=== PATIENT | female | born 1980 | race Caucasian/White ===

== ENCOUNTER → 2017-11-22 | Outpatient (CLI) | payer OTHER | END | disposition home or self-care (01) | LOC: C.PATHSPEC 17:48 | PROVIDERS: ATTEND Obstetrics & Gynecology | DX: O09.511 Supervision of elderly primigravida, first trimester (principal); Z3A.00 Weeks of gestation of pregnancy not specified ==

== ENCOUNTER 2018-06-13 00:17 | Inpatient (IN) ==
[2018-06-13] MEDS ORDERED: LACTATED RINGER'S 1,000 ML IV PRN ×3 (01:32→17:01)
[2018-06-13] MEDS ORDERED: OXYTOCIN 30 UNITS/500 ML BAG IV PRN ×2 (01:32→12:39)
--- NOTE | 2018-06-13 01:39 | History & Physical Report ---
Date of Service June 13, 2018 Assessment & Plan (1) PROM (premature rupture of membranes): Admit will initiate antibiotics is strep status is unknown group B strep swab is performed hopefully results will help care of the after delivery expectant management at this stage as patient is starting to contract discussed the role of Pitocin if contractions do not increase further History of Present Illness Primary Care Provider: NO PCP 38-year-old G1 presents with gross rupture of membranes patient is nahomy although minimally she has no group B strep status as her appointment was actually scheduled for today where this was going to be done. was complicated with a Zika exposure however ultrasounds were normal. She did have a maternal medicine consult findings were normal ultrasounds have been normal with us as well her actual PCR was negative but her exposure was positive otherwise uncomplicated Patient History Social History Preferred Language: Bol[place]ian marital status: Feels Safe at Home: Yes Safety Concerns: Feels Safe At This Time Smoking Status: Never smoker Hx Alcohol Use: No Hx Substance Use: No Physical Exam Vital Signs (Past 24 Hours): Last Vital Signs Temp 36.7 C 06/13/18 00:44 Pulse 82 06/13/18 00:44 Resp 18 06/13/18 00:44 BP 121/86 06/13/18 00:44 Physical Exam: Vital signs stable afebrile abdomen gravid heart rate reactive patient is grossly ruptured cervix is closed 50% and firm vertex position -1 station estimated weight 7 pounds
[2018-06-13] MEDS ORDERED: PENICILLIN G POTASSIUM 6 MU in DEXTROSE 5% 250 ML IV ONE (01:45)
[2018-06-13 02:04] LABS: Hematocrit (blood only) 35.1 % (37-47); Hemoglobin 11.7 g/dL (12.0-16.0); Mean Corpuscular Volume 80.5 fL (80-100); Mean Platelet Volume 11.1 fL (7.4-10.4); Platelet Count 292 K/uL (130-400); RDW Coefficient of Variation 15.2 % (11.5-14.5); RDW Standard Deviation 43.9 fL (36.4-46.3); Red Blood Count 4.36 M/uL (4.2-5.4); White Blood Count 5.92 K/uL (4.8-10.8)
[2018-06-13 02:06] LABS: Mean Corpuscular Hgb Conc 33.3 g/dL (32-36)
[2018-06-13] MEDS: LACTATED RINGER'S 1,000 ML IV SCH ×2 (02:22→16:25)
[2018-06-13] MEDS: PENICILLIN G POTASSIUM 3 MU in DEXTROSE 5% 100 ML IV PRN ×4 (06:22→18:44)
--- NOTE | 2018-06-13 08:04 | Obstetrical Progress Note ---
Date of Service June 13, 2018 6+ hours PROM and contractions are increasing, but not adequate yet. I have recommended Pitocin, she wishes to wait for now. Disc risks of infection Physical Exam Vital Signs (Past 24 Hours): Last Vital Signs Temp 37.3 C 06/13/18 07:46 Pulse 72 06/13/18 07:46 Resp 18 06/13/18 07:46 BP 113/63 06/13/18 07:46
--- NOTE | 2018-06-13 10:17 | Labor Progress Brief Note ---
Date of Service June 13, 2018 Subjective Patient noting contractions and notes they feel closer together. Assessment & Plan (1) PROM (premature rupture of membranes): no cerivcal change. cx unfavorable. prom for 10.5 hours. Discussed need to consider intervention. Discussed continued expectant management (don't know when labor will ensue, increasing risk of infection with time ruptured), pitocin now (unfavorable cervix), cytotec orally for cervical ripening and then pitocin. Discussed pros and cons of all. She is ok with proceeding with cytotec and then subsequently pitocin. Fetus is category one. Will continue to monitor closely. Physical Exam Vital Signs (Past 24 Hours): Last Vital Signs Temp 37.4 C 06/13/18 10:00 Pulse 83 06/13/18 10:01 Resp 18 06/13/18 10:00 BP 142/87 H 06/13/18 10:01 Constitutional: WD/WN, vitals as above Genitourinary: cx--cl/50/-2/mid/firm clear fluid noted efm--130s wtih mod variability, accels to 150s, no decels toco--q3.5-4min
[2018-06-13] MEDS ORDERED: miSOPROStol 50 MCG TAB PO STA (10:35)
--- NOTE | 2018-06-13 14:38 | Labor Progress Brief Note ---
Date of Service June 13, 2018 Subjective Patient getting uncomfortable with contractions, breathing through them Assessment & Plan (1) PROM (premature rupture of membranes): Patient requested cervical exam prior to making a decision. Cytotec helped with cervical ripening and much softer and more effaced. Unfortunately , need more uterine power. She is ok with starting pitocin. fetus category one. Questions addressed. Had conversation about pain management. She is now leaning toward epidural. May have on demand. Physical Exam Vital Signs (Past 24 Hours): Last Vital Signs Temp 37.5 C 06/13/18 11:42 Pulse 75 06/13/18 11:39 Resp 18 06/13/18 11:42 BP 97/61 L 06/13/18 11:39 Constitutional: WD/WN, vitals as above Genitourinary: cx--ft/90/-2/soft toco--q2-4min efm--125 with mod variability accels to 150s, no decels
[2018-06-13] MEDS ORDERED: BUPIVACAINE 0.25% 30 ML VIAL ONE (15:46)
[2018-06-13] MEDS ORDERED: fentaNYL citrate 100 MCG/2 ML VIAL ONE (15:47)
[2018-06-13] MEDS ORDERED: ePHEDrine sulfate 50 MG/ML AMP ONE (15:47)
[2018-06-13] MEDS ORDERED: fentaNYL 2MCG/ML ROPIV 1.25MG/ML 100 ML BAG EPI ONE (15:48)
[2018-06-13] MEDS ORDERED: NALOXONE HCL 0.4 MG/1 ML VIAL/CARP IV PRN (17:01)
[2018-06-13] MEDS ORDERED: NALOXONE HCL 1 MG in SODIUM CHLORIDE 0.9% 1000ML 1,000 ML IV PRN (17:01)
[2018-06-13] MEDS ORDERED: fentaNYL 2MCG/ML ROPIV 1.25MG/ML 100 ML BAG EPI PRN (17:01)
[2018-06-13] MEDS ORDERED: NALBUPHINE HCL INJ 10 MG/ML AMP IV PRN (17:01)
[2018-06-13] MEDS ORDERED: DiphenhydrAMINE HCL 50 MG/ML VIAL IV PRN (17:01)
[2018-06-13] MEDS ORDERED: ePHEDrine sulfate 50 MG/ML AMP IV PRN (17:01)
--- NOTE | 2018-06-13 17:01 | Anesthesiology Consultation ---
Date of Service June 13, 2018 Assessment & Plan Chart Review Chart Review: Acceptable Risk for Labor Epidural Consults Requested none ASA ASA2E History Height/Weight Height: 5 ft 2 in Weight: 69.4 kg Allergies Allergy/AdvReac Type Severity Reaction Status Date / Time No Known Allergies Allergy Verified 06/13/18 02:30 Medications Home Medications Medication Instructions Recorded Confirmed Last Taken vit-iron fum-folic ac 1 tab PO DAILY 06/13/18 06/13/18 06/12/18 09:00 [ Vitamin] Active Medications Generic Name Dose Route Start Last Admin Trade Name Freq PRN Reason Stop Dose Admin Penicillin G Potassium 3 mu/ 106 mls @ 100 mls/hr 06/13/18 01:32 06/13/18 15:43 Dextrose IV 06/23/18 01:31 Infused Q4H PRN Infusion Give until delivery Lactated Ringer's 1,000 mls @ 125 mls/hr 06/13/18 01:45 06/13/18 16:25 Lr IV 06/15/18 01:44 125 mls/hr .Q8H SETH Administration Oxytocin 30 units in 500 mls @ 6 mls/hr 06/13/18 12:39 06/13/18 16:40 Pitocin IV 06/15/18 12:38 0.36 units/hr .Q24H PRN 6 mls/hr Labor Induction/Augmentation Titration Protocol 0.36 UNITS/HR Past Medical History Medical History History of tooth extraction Uterine fibroid Social History Smoking Status: Never smoker Do You Dip or Chew Tobacco: No Hx Alcohol Use: No Hx Substance Use: No substance use type: does not use Physical Exam Vital Signs Last Vital Signs Temp 37.1 C 06/13/18 15:09 Pulse 74 06/13/18 16:57 Resp 18 06/13/18 15:09 BP 107/56 L 06/13/18 16:55 Pulse Ox 99 06/13/18 16:57 Testing Laboratory Results 06/13/18 01:43
--- NOTE | 2018-06-13 17:45 | Labor Progress Brief Note ---
Date of Service June 13, 2018 Subjective comfortable after epidural Assessment & Plan (1) PROM (premature rupture of membranes): fetus category two but overall reassuring, with good scalp stim. Continue pitocin. If variables get concerning, consider amnioinfusion. Physical Exam Vital Signs (Past 24 Hours): Last Vital Signs Temp 37.0 C 06/13/18 17:01 Pulse 89 06/13/18 17:37 Resp 18 06/13/18 17:01 BP 103/58 L 06/13/18 17:25 Pulse Ox 100 06/13/18 17:37 Constitutional: WD/WN, vitals as above Genitourinary: cx--1+/90/-2, able to get finger in cervix but could not stretch toco--q2-4min, pit at 6 efm--150s with mod variability, accels present, variable decels with contractions, has been having these on/off since shortly before initiation of pitocin
[2018-06-13] MEDS ORDERED: OXYCODONE/ACETAMINOPHEN 5mg/325mg TAB PO PRN (22:21)
[2018-06-13] MEDS ORDERED: ACETAMINOPHEN 325 MG TAB PO PRN (22:21)
[2018-06-13] MEDS ORDERED: COUGH DROP (SUGAR FREE) LOZ 24 LOZ/1 BOX BUCCAL ONE (23:53)
[2018-06-14] MEDS ORDERED: COUGH DROP (SUGAR FREE) LOZ 24 LOZ/1 BOX BUCCAL PRN (00:03)
[2018-06-14] MEDS ORDERED: BISACODYL 10 MG SUPP PR PRN (00:57)
[2018-06-14] MEDS ORDERED: SUPERCREAM 0.870% 15 GM JAR EXT PRN (00:57)
[2018-06-14] MEDS ORDERED: OXYTOCIN 30 UNITS/500 ML BAG IV PRN (00:57)
[2018-06-14] MEDS ORDERED: BENZOCAINE 20% AER SPR 82.5 GM CAN EXT PRN (00:57)
[2018-06-14] MEDS ORDERED: DIPHTHERIA/TETANUS/PERTUSSIS 0.5 ML SYR/VIAL IM ONE (00:57)
[2018-06-14] MEDS ORDERED: HYDROCORTISONE ACETATE 25 MG SUPP PR PRN (00:57)
--- NOTE | 2018-06-14 02:52 | Delivery Summary ---
DATE OF OPERATION: 06/13/2018 PREOPERATIVE DIAGNOSES: 1. Intrauterine at 37+ weeks. 2. Premature rupture of membranes prior to labor. 3. GBS status unknown. 4. Possible exposure to Zika virus. POSTOPERATIVE DIAGNOSES: 1. Intrauterine at 37+ weeks. 2. Premature rupture of membranes prior to labor. 3. GBS status unknown. 4. Possible exposure to Zika virus. PROCEDURES: 1. Oral Cytotec for cervical ripening. 2. Pitocin augmentation. 3. Epidural. 4. Normal spontaneous vaginal delivery. 5. Right labial laceration with repair. SURGEON: Anu Dubon MD ANESTHESIA: Epidural. ESTIMATED BLOOD LOSS: 300 mL. DESCRIPTION OF PROCEDURE: The patient presented to labor and delivery after rupturing at approximately 11:30 p.m. with clear fluid. She presented at approximately 1:30 and was closed, long and high. She wanted expectant management and so she was expectantly managed until approximately 10:00 a.m. when her returned, we discussed options. Her cervix was still unfavorable, so I recommended p.o. Cytotec. She got 150 mg p.o. Cytotec and then started to contract. Four hours after that, Pitocin augmentation was started. She eventually underwent an epidural anesthetic. She was checked after the epidural and found to be 1, 90%, -2 and then when she was checked again a few hours later, she was complete-complete and +2. The fetus was category 2 with variables and early with contractions, but with good variability. The patient then pushed effectively for approximately an hour to deliver a viable male infant in a LES presentation. There was a nuchal cord and a left nuchal arm. The nuchal cord was reduced and the patient then proceeded to push to deliver the rest of the baby without difficulty. The nose and mouth were bulb suctioned. The was placed on maternal abdomen for drying and attention. The cord was clamped and cut at 1 minute of life. Cord blood and segment were obtained. Placenta was delivered spontaneously intact with a 3-vessel cord. Cervix, sulci and rectum were examined and found to be intact. A small right labial laceration was repaired with interrupted sutures of 4-0 Vicryl. A [id number] suture was required at the introitus to control some oozing and then hemostasis was noted to be excellent with dilute Pitocin and fundal massage. Estimated blood loss was 300 mL. Apgars were 8 and 9. Mother and baby doing well at the end of the delivery. I attest to the content of the Intraoperative Record and any orders documented therein. Any exception s are noted below.
[2018-06-14] MEDS: IBUPROFEN 600 MG TAB PO PRN ×3 (05:47→20:18)
--- NOTE | 2018-06-14 06:55 | Obstetrical Progress Note ---
Date of Service <Ashutosh Prakash - Last Filed: 06/14/18 06:57> June 14, 2018 Assessment & Plan <Ashutosh Prakash - Last Filed: 06/14/18 06:57> (1) (spontaneous vaginal delivery): -vital signs reviewed and WNL -last Hgb 11.7 -Blood type: O+, GBS pending, Rubella Immune -pt doing well clinically -encourage ambulation, monitor and control pain with motrin tylenol, cont regular diet, monitor lochia -cont encourage breast feeding Subjective <Ashutosh Prakash - Last Filed: 06/14/18 06:57> 38 y/o PPD1 found in bed this morning in NAD. Reports no acute overnight events. Pt states that she has no pain other than appropriate soreness. Tolerating PO intake without N/V. Able to ambulate without issue. She is breast feeding with some associated breast tenderness. No issues with voiding, no BM yet. No other acute concerns or complaints. Review of Systems All systems reviewed & are unremarkable except as noted in HPI & below Physical Exam <Ashutosh Prakash - Last Filed: 06/14/18 06:57> Vital Signs (Past 24 Hours) Last Vital Signs Temp 36.6 C 06/14/18 03:30 Pulse 83 06/14/18 03:30 Resp 18 06/14/18 03:30 BP 110/67 06/14/18 03:30 Pulse Ox 98 06/14/18 03:30 Constitutional WD/WN, vitals as above Eyes PERRL, conjunctivae normal, anicteric sclerae ENMT external ear and nose normal, oropharynx normal Respiratory normal respiratory effort, lungs clear to auscultation Cardiovascular RRR, no murmur, no edema Gastrointestinal (Abdomen) mild abd tenderness fundus 1 cm above U Skin no rashes, warm and dry Psychiatric A+Ox3, euthymic affect Lymphatic no LE swelling, no calf tenderness Results & Data <Ashutosh Prakash - Last Filed: 06/14/18 06:57> Medications Administered Current Inpatient Medications Acetaminophen (Tylenol) 650 mg PO Q6H PRN PRN Reason: Pain/SORTO/Fever Stop: 07/13/18 22:20 Benzocaine (Dermoplast Pain Relieving [place]) 1 appln EXT PRN PRN PRN Reason: Perineal Discomfort Stop: 07/14/18 00:56 Last Admin: 06/14/18 05:47 Dose: 1 appln Documented by: Bisacodyl (Dulcolax) 5 mg PO 1999 [facility] Stop: 06/14/18 20:01 Bisacodyl (Dulcolax) 10 mg NE DAILY PRN PRN Reason: No BM on 2nd post- day Stop: 07/14/18 00:56 Cocaine HCl (Supercream 0.870%) 1 gm EXT BID PRN PRN Reason: Hemorrhoidal Inflammation Stop: 06/28/18 00:56 Docusate Sodium (Colace) 100 mg PO BID [facility] Stop: 07/14/18 08:59 Hydrocortisone (Anusol Hc) 25 mg NE BID PRN PRN Reason: Hemorrhoidal Inflammation Stop: 07/14/18 00:56 Oxytocin (Pitocin) 30 units in 500 mls @ 333.333 mls/hr IV .Q1H30M PRN; Protocol PRN Reason: BLEEDING CONTROL Stop: 07/14/18 00:56 Ibuprofen (Motrin) 600 mg PO Q4H PRN PRN Reason: Pain/SORTO/Cramping/Fever Stop: 07/13/18 22:20 Last Admin: 06/14/18 05:47 Dose: 600 mg Documented by: Menthol (Nice) 1 kenan BUCCAL PRN PRN; Protocol PRN Reason: Sore Throat Stop: 07/14/18 00:02 Last Admin: 06/14/18 00:29 Dose: 1 kenan Documented by: Oxycodone/Acetaminophen (Percocet 5mg/325mg) 1 tab PO Q4H PRN PRN Reason: Pain not relieved by... Stop: 06/27/18 22:20 Prenat Multivit/[employer]/Iron/Folic Ac ( Vitamin) 1 tab PO QAM [facility] Stop: 07/14/18 08:59 <Anu Dubon MD, FACOG - Last Filed: 06/14/18 07:29> Co-Signing Physician Notes Resident Physician Supervision Note: I interviewed and examined the patient. Discussed with Dr. Prakash and agree with findings and plan as documented in the note. Any exceptions or clarifications are listed here: ON exam, her fundus is firm and nontender 1 cm below u. Doing well. cont routine pp exam. Documented By: Anu Dubon MD, FACOG Resident Activity Tracking <Ashutosh Prakash, DO - Last Filed: 06/14/18 06:57> Resident Involvement: Resident Care Provided Care Provided: OB Delivery
[2018-06-14 07:17] LABS: Hematocrit (blood only) 30.1 % (37-47); Hemoglobin 9.8 g/dL (12.0-16.0)
[2018-06-14] MEDS: DOCUSATE SODIUM 100 MG CAP PO SCH ×2 (08:31→20:19)
[2018-06-14] MEDS: PRENATAL VITAMIN 1 TAB PO SCH (08:31)
--- NOTE | 2018-06-14 10:30 | Anesthesia Procedure Note ---
Date of Service June 14, 2018 Anesthesia Post Epidural Note Vital Signs Vital Signs: Temp Pulse Resp BP Pulse Ox 36.6 C 82 22 105/70 98 06/14/18 07:31 06/14/18 07:31 06/14/18 08:00 06/14/18 08:00 06/14/18 07:31 Notes Mental Status: alert / awake / arousable Nausea / Vomiting: adequately controlled Pain: adequately controlled Airway Patency, RR, SpO2: stable & adequate BP & HR: stable & adequate Hydration State: stable & adequate Neuraxial Anesthesia: was administered Anesthetic Complications: no major complications apparent Epidural: Removed without complications and With tip intact
[2018-06-14] MEDS ORDERED: BISACODYL 5 MG TABEC PO SCH (20:00)
--- NOTE | 2018-06-15 06:51 | Obstetrical Progress Note ---
Date of Service <Ashutosh Prakash DO - Last Filed: 06/15/18 06:52> June 15, 2018 Assessment & Plan <Ashutoshterrence Prakash DO - Last Filed: 06/15/18 06:52> (1) (spontaneous vaginal delivery): -vital signs reviewed and WNL -last Hgb 9.8 --> ferrous sulfate 325 mg -Blood type: O+, GBS-, Rubella Immune -pt doing well clinically -encourage ambulation, monitor and control pain with motrin tylenol, cont regular diet, monitor lochia -cont encourage breast feeding -plan for d/c today <Pito Reardon Jr, MD, FACOG - Last Filed: 06/15/18 07:10> (1) PROM (premature rupture of membranes): Resident Physician Supervision Note: I was present with Dr. Prakash during the history and exam. I discussed the case with the resident and agree with the findings and plan as documented in the note. Any exceptions or clarifications are listed here: Patient desires d/c. Instructions given, f/u in 6 weeks Documented By: Pito Reardon Jr, MD, FACOG Subjective <Ashutoshterrence Prakash DO - Last Filed: 06/15/18 06:52> 38 y/o PPD2 found in bed this morning in NAD. Reports no acute overnight events. Pt states that she has no pain other than appropriate soreness. Tolerating PO intake without N/V. Able to ambulate without issue. She is breast feeding without issue. No issues with voiding, no BM yet. No other acute concerns or complaints. Pt ok with plan for d/c today. Review of Systems All systems reviewed & are unremarkable except as noted in HPI & below Physical Exam <Ashutosh Prakash DO - Last Filed: 06/15/18 06:52> Vital Signs (Past 24 Hours) Last Vital Signs Temp 36.6 C 06/14/18 23:30 Pulse 62 06/14/18 23:30 Resp 18 06/14/18 23:30 BP 111/74 06/14/18 23:30 Pulse Ox 98 06/14/18 20:07 Constitutional WD/WN, vitals as above Eyes PERRL, conjunctivae normal, anicteric sclerae ENMT external ear and nose normal, oropharynx normal Respiratory normal respiratory effort, lungs clear to auscultation Cardiovascular RRR, no murmur, no edema Gastrointestinal (Abdomen) mild abd tenderness Skin no rashes, warm and dry Psychiatric A+Ox3, euthymic affect Lymphatic no LE swelling, no calf tenderness Results & Data <Ashutosh Prakash, - Last Filed: 06/15/18 06:52> Laboratory Results Laboratory Results - last 24 hr 06/14/18 06:57 Hgb 9.8 L Hct 30.1 L Medications Administered Current Inpatient Medications Acetaminophen (Tylenol) 650 mg PO Q6H PRN PRN Reason: Pain/SORTO/Fever Stop: 07/13/18 22:20 Benzocaine (Dermoplast Pain Relieving [place]) 1 appln EXT PRN PRN PRN Reason: Perineal Discomfort Stop: 07/14/18 00:56 Last Admin: 06/14/18 05:47 Dose: 1 appln Documented by: Bisacodyl (Dulcolax) 10 mg SC DAILY PRN PRN Reason: No BM on 2nd post- day Stop: 07/14/18 00:56 Cocaine HCl (Supercream 0.870%) 1 gm EXT BID PRN PRN Reason: Hemorrhoidal Inflammation Stop: 06/28/18 00:56 Last Admin: 06/14/18 20:18 Dose: 1 gm Documented by: Docusate Sodium (Colace) 100 mg PO BID SETH Stop: 07/14/18 08:59 Last Admin: 06/14/18 20:19 Dose: 100 mg Documented by: Hydrocortisone (Anusol Hc) 25 mg SC BID PRN PRN Reason: Hemorrhoidal Inflammation Stop: 07/14/18 00:56 Oxytocin (Pitocin) 30 units in 500 mls @ 333.333 mls/hr IV .Q1H30M PRN; Protocol PRN Reason: BLEEDING CONTROL Stop: 07/14/18 00:56 Ibuprofen (Motrin) 600 mg PO Q4H PRN PRN Reason: Pain/SORTO/Cramping/Fever Stop: 07/13/18 22:20 Last Admin: 06/14/18 20:18 Dose: 600 mg Documented by: Menthol (Nice) 1 kenan BUCCAL PRN PRN; Protocol PRN Reason: Sore Throat Stop: 07/14/18 00:02 Last Admin: 06/14/18 00:29 Dose: 1 kenan Documented by: Oxycodone/Acetaminophen (Percocet 5mg/325mg) 1 tab PO Q4H PRN PRN Reason: Pain not relieved by... Stop: 06/27/18 22:20 Prenat Multivit/[place]/Iron/Folic Ac ( Vitamin) 1 tab PO QAM [facility] Stop: 07/14/18 08:59 Last Admin: 06/14/18 08:31 Dose: 1 tab Documented by: Resident Activity Tracking <Ashutosh Prakash DO - Last Filed: 06/15/18 06:52> Resident Involvement: Resident Care Provided Care Provided: OB Delivery
[2018-06-15] MEDS ORDERED: FERROUS SULFATE 325 MG TAB PO SCH (09:00)
[2018-06-15] MEDS: PRENATAL VITAMIN 1 TAB PO SCH (09:20)
[2018-06-15] MEDS: DOCUSATE SODIUM 100 MG CAP PO SCH (09:20)
[2018-06-15] MEDS ORDERED: SODIUM CHLORIDE 0.65% NA SOLN 45 ML (OCEAN) ONE (12:28)
[2018-06-15] MEDS ORDERED: SODIUM CHLORIDE 0.65% NA SOLN 45 ML (OCEAN) PRN (12:42)
== END 2018-06-15 19:50 | disposition home or self-care (01) | DRG 807 ==
LOC: OPB 00:17 → 4S1 00:21 → 4S2 06-14 00:35